=== PATIENT | male | born 1985 | race Caucasian/White ===

== ENCOUNTER 2016-11-24 13:53 | Emergency (ER) | payer SELFPAY ==
[2016-11-24 13:57] VITALS: BP 143/85; PULSE 87; RESP 20; TEMP 98; O2SAT 97
[2016-11-24] MEDS ORDERED: Oxycodone/Acetaminophen 5/325 mg Tab PO STA (14:01)
[2016-11-24] MEDS ORDERED: Oxycodone/Acetaminophen 5/325 mg Tab ONE (14:05)
--- NOTE | 2016-11-24 14:06 | ED PDOC ---
HPI: Dental Pain/Injury Time Seen by Provider: 11/24/16 13:57 Chief Complaint (Nursing): Dental Pain Chief Complaint (Provider): Left lower jaw History Per: Patient History/Exam Limitations: no limitations Onset/Duration Of Symptoms: Days Current Symptoms Are (Timing): Still Present Quality: "Pain" Additional Complaint(s): The patient is a 31yo male, no past medical history, presents to the ED for evaluation of pain to his left lower jaw. Patient reports pain has been present for the past day and is radiating to his ear and throat. Patient denies any injury or recent dental work. He also denies any associated fever, chills. Patient currently offers no other medical complaints. Past Medical History Reviewed: Historical Data, Nursing Documentation, Vital Signs Vital Signs: Last Vital Signs Temp 98 F 11/24/16 13:55 Pulse 87 11/24/16 13:55 Resp 20 11/24/16 13:55 BP 143/85 11/24/16 13:55 Pulse Ox 97 11/24/16 13:55 - Medical History PMH: No Chronic Diseases - Surgical History Surgical History: No Surg Hx - Family History Family History: States: Unknown Family Hx - Immunization History Hx Tetanus Toxoid Vaccination: No Hx Influenza Vaccination: No Hx Pneumococcal Vaccination: No - Allergies Allergies/Adverse Reactions: Allergies Allergy/AdvReac Type Severity Reaction Status Date / Time No Known Allergies Allergy Verified 11/24/16 13:55 Review of Systems ROS Statement: Except As Marked, All Systems Reviewed And Found Negative Constitutional: Negative for: Fever, Chills ENT: Positive for: Other (left lower jaw pain) Physical Exam - Reviewed Nursing Documentation Reviewed: Yes Vital Signs Reviewed: Yes - Physical Exam Appears: Positive for: Well, Non-toxic, No Acute Distress Head Exam: Positive for: ATRAUMATIC, NORMAL INSPECTION, NORMOCEPHALIC Skin: Positive for: Normal Color, Warm, DRY Eye Exam: Positive for: EOMI, Normal appearance, PERRL ENT: Positive for: Other (left lower jaw with missing teeth, swelling noted.) Neck: Positive for: Normal Respiratory: Negative for: Respiratory Distress Neurologic/Psych: Positive for: Alert, Oriented - ECG O2 Sat by Pulse Oximetry: 97 (RA) Pulse Ox Interpretation: Normal Medical Decision Making Medical Decision Making: Time: 1402 Impression: Dental abscess Plan: -- Percocet 1 tab PO -- Penicillin VK 500 mg PO Pt provided with info to dental clinics [facility] [place] RX database accessed, no RX filled in last year Scribe Attestation: Documented by Tiffany Germain acting as a scribe for [employer] [facility] Provider Attestation: All medical record entries made by the Scribe were at my direction and personally dictated by me. I have reviewed the chart and agree that the record accurately reflects my personal performance of the history, physical exam, medical decision making, and the department course for this patient. I have also personally directed, reviewed, and agree with the discharge instructions and disposition. Disposition - Clinical Impression Clinical Impression: Dental caries, Dental abscess - Patient ED Disposition Is Patient to be Admitted: No - Disposition Disposition: Routine/Home Disposition Time: 14:24 Condition: STABLE Forms: [employer] (Mongolian) - POA Present On Arrival: None
== END 2016-11-24 14:38 | disposition home or self-care (01) ==
LOC: H.ER 13:53
DX: K04.7 Periapical abscess without sinus (principal)

== ENCOUNTER 2017-01-31 17:33 | Emergency (ER) | payer OTHER ==
[2017-01-31 18:21] VITALS: BP 129/81; PULSE 73; RESP 18; TEMP 97.7; O2SAT 98
--- NOTE | 2017-01-31 18:43 | ED PDOC ---
HPI: Dental Pain/Injury Time Seen by Provider: 01/31/17 18:30 Chief Complaint (Nursing): Dental Pain Chief Complaint (Provider): Mouth pain History Per: Patient History/Exam Limitations: no limitations Onset/Duration Of Symptoms: Days Current Symptoms Are (Timing): Still Present Additional Complaint(s): Patient is a 32 y/o male with no significant past medical history presenting to the emergency department for an abscess in his left lower mouth ongoing for two days. No swelling noted. Denies seeing a dentist for the problem. Also denies other complaints. PCP: none provided. Past Medical History Reviewed: Historical Data, Nursing Documentation, Vital Signs Vital Signs: Last Vital Signs Temp 97.7 F 01/31/17 18:20 Pulse 73 01/31/17 18:20 Resp 18 01/31/17 18:20 BP 129/81 01/31/17 18:20 Pulse Ox 98 01/31/17 18:20 - Medical History PMH: No Chronic Diseases - Surgical History Surgical History: No Surg Hx - Family History Family History: States: Unknown Family Hx - Social History Current smoker - smoking cessation education provided: Yes Ex-Smoker (has not smoked in the last 12 months): No Alcohol: None Drugs: Denies - Immunization History Hx Tetanus Toxoid Vaccination: No Hx Influenza Vaccination: No Hx Pneumococcal Vaccination: No - Home Medications Home Medications: Ambulatory Orders Medication Instructions Recorded Penicillin VK [Pen-Vee K] 500 mg PO BID #14 tab 11/24/16 oxyCODONE/Acetaminophen [Percocet 1 ea PO Q6 PRN #5 tab 11/24/16 5/325 mg Tab] Clindamycin [Cleocin] 1 tab PO QID #28 cap 01/31/17 Naproxen 1 tab PO Q12 PRN #10 tab 01/31/17 - Allergies Allergies/Adverse Reactions: Allergies Allergy/AdvReac Type Severity Reaction Status Date / Time No Known Allergies Allergy Verified 11/24/16 13:55 Review of Systems ROS Statement: Except As Marked, All Systems Reviewed And Found Negative ENT: Positive for: Mouth Pain (abscess) Physical Exam - Reviewed Nursing Documentation Reviewed: Yes Vital Signs Reviewed: Yes - Physical Exam Appears: Positive for: Well, Non-toxic, No Acute Distress Head Exam: Positive for: ATRAUMATIC, NORMAL INSPECTION, NORMOCEPHALIC Skin: Positive for: Normal Color, Warm, Dry Eye Exam: Positive for: Normal appearance ENT: Positive for: Other (tenderness on palpation of left lower gums. no pus pocket noted.) Neck: Positive for: Normal Cardiovascular/Chest: Positive for: Regular Rate, Rhythm Respiratory: Negative for: Accessory Muscle Use, Respiratory Distress Extremity: Positive for: Normal ROM Neurologic/Psych: Positive for: Alert, Oriented (x3) - ECG O2 Sat by Pulse Oximetry: 98 (RA) Pulse Ox Interpretation: Normal Medical Decision Making Medical Decision Makin:30 Initial impression: mouth pain Patient was offered Motrin but declined. Antibiotics prescribed. 18:45 Upon provider reevaluation patient is medically stable, and requires no further treatment in the ED at this time. Patient will be discharged with Rx for Naproxen and Cleocin. Counseling was provided and all questions were answered regarding diagnosis. There is agreement to discharge plan. Return if symptoms persist or worsen. Clinical Impression: Toothache ~ Scribe Attestation: Documented by Oksana Blanchard, acting as a scribe for [facility]. Provider Scribe Attestation: All medical record entries made by the Scribe were at my direction and personally dictated by me. I have reviewed the chart and agree that the record accurately reflects my personal performance of the history, physical exam, medical decision making, and the department course for this patient. I have also personally directed, reviewed, and agree with the discharge instructions and disposition. Disposition - Clinical Impression Clinical Impression: Toothache - Patient ED Disposition Is Patient to be Admitted: No Counseled Patient/Family Regarding: Rx Given - Disposition Disposition: Routine/Home Disposition Time: 18:45 Condition: FAIR Prescriptions: Clindamycin [Cleocin] 1 tab PO QID #28 cap Naproxen 1 tab PO Q12 PRN #10 tab PRN Reason: Pain, Moderate (4-7) Instructions: Toothache (ED) Forms: [employer] (Spanish)
== END 2017-01-31 18:48 | disposition home or self-care (01) ==
LOC: H.ER 17:33
DX: K08.89 Other specified disorders of teeth and supporting structures (principal)

== ENCOUNTER 2017-05-10 10:59 | Emergency (ER) | payer MEDICAID, OTHER ==
[2017-05-10 11:04] VITALS: BP 145/90; PULSE 88; TEMP 97; O2SAT 98
[2017-05-10 11:05] VITALS: BMI 22.8
[2017-05-10 11:28] VITALS: RESP 19
--- NOTE | 2017-05-10 11:35 | ED PDOC ---
HPI: Back Time Seen by Provider: 05/10/17 11:35 Chief Complaint (Nursing): Back Pain Chief Complaint (Provider): low back pain History Per: Patient Additional Complaint(s): 32-year-old male with no past medical history presents to emergency department with lower back pain 2 weeks. Patient denies any trauma or injury. He denies history of similar symptoms. Patient states today he woke up with worsening pain prompting ED visit. No medications taken for pain relief since pain started 2 weeks ago. Patient denies radiation of pain and he denies any bowel or bladder dysfunction. PMD: none Past Medical History Reviewed: Historical Data, Nursing Documentation, Vital Signs Vital Signs: Last Vital Signs Temp 97 F L 05/10/17 11:25 Pulse 88 05/10/17 11:25 Resp 19 05/10/17 11:25 BP 145/90 05/10/17 11:25 Pulse Ox 98 05/10/17 11:25 - Medical History PMH: No Chronic Diseases - Surgical History Surgical History: No Surg Hx - Family History Family History: States: No Known Family Hx - Living Arrangements Living Arrangements: With Family - Social History Current smoker - smoking cessation education provided: Yes Alcohol: None Drugs: Cannabis - Home Medications Home Medications: Ambulatory Orders Medication Instructions Recorded Penicillin VK [Pen-Vee K] 500 mg PO BID #14 tab 11/24/16 oxyCODONE/Acetaminophen [Percocet 1 ea PO Q6 PRN #5 tab 11/24/16 5/325 mg Tab] Clindamycin [Cleocin] 1 tab PO QID #28 cap 01/31/17 Naproxen 1 tab PO Q12 PRN #10 tab 01/31/17 Cyclobenzaprine [Cyclobenzaprine 10 mg PO TID PRN #20 tab 05/10/17 HCl] Naproxen [Naprosyn] 500 mg PO BID #20 tab 05/10/17 - Allergies Allergies/Adverse Reactions: Allergies Allergy/AdvReac Type Severity Reaction Status Date / Time No Known Allergies Allergy Verified 11/24/16 13:55 Review of Systems ROS Statement: Except As Marked, All Systems Reviewed And Found Negative Constitutional: Negative for: Fever Respiratory: Negative for: Cough Gastrointestinal: Negative for: Nausea, Vomiting, Abdominal Pain, Diarrhea Genitourinary Male: Negative for: Dysuria Musculoskeletal: Positive for: Back Pain Physical Exam - Reviewed Nursing Documentation Reviewed: Yes Vital Signs Reviewed: Yes - Physical Exam Appears: Positive for: Well, Non-toxic, No Acute Distress Skin: Negative for: Rash Eye Exam: Positive for: Normal appearance Cardiovascular/Chest: Positive for: Regular Rate, Rhythm Respiratory: Positive for: Normal Breath Sounds Back: Positive for: Other (Moderate tenderness to palpation of the lower lumbar region, no step off, no palpable bony deformity, no CVA tenderness bilaterally) Neurologic/Psych: Positive for: Alert, Oriented - Laboratory Results Urine dip results: Negative for: Leukocyte Esterase, Blood, Nitrate, Ketones, Glucose, Bilirubin, Protein - ECG O2 Sat by Pulse Oximetry: 98 Pulse Ox Interpretation: Normal - Other Rad L/S Spine X-ray X-Ray: Interpreted by Me, Viewed By Me X-Ray Interpretation: no fx, no dis Medical Decision Making Medical Decision Makin-year-old male with lumbar pain Plan: U dip LS Spine x-ray PO tylenol and flexeril IM toradol Patient is aware of all diagnostic testing results, all questions answered. Patient reports slight improvement pain after meds given. Prescriptions provided for Naprosyn and Flexeril. Patient was referred to on-call orthopedist for follow-up. Disposition - Clinical Impression Clinical Impression: Back strain - Patient ED Disposition Is Patient to be Admitted: No Counseled Patient/Family Regarding: Studies Performed, Diagnosis, Need For Followup, Rx Given, Smoking Cessation - Disposition Referrals: Humberto Vazquez III, MD [Staff Provider] - Disposition: Routine/Home Disposition Time: 13:30 Condition: STABLE Additional Instructions: Take prescription meds as directed as needed for pain. Rest and avoid heavy lifting. Follow-up with primary doctor or orthopedist for any persistent symptoms. Prescriptions: Cyclobenzaprine [Cyclobenzaprine HCl] 10 mg PO TID PRN #20 tab PRN Reason: Muscle Spasm Naproxen [Naprosyn] 500 mg PO BID #20 tab Instructions: Back Pain (ED) Forms: [employer] (Hungarian)
--- NOTE | 2017-05-10 13:44 | RAD ---
PROCEDURE: Radiographs of the Lumbar Spine. HISTORY: lumbar pain COMPARISON: None. FINDINGS: BONES: Alignment appears satisfactory. No listhesis. No acute displaced fracture identified. DISC SPACES: Unremarkable. OTHER FINDINGS: None. IMPRESSION: No acute displaced fracture or subluxation identified.
== END 2017-05-10 13:45 | disposition home or self-care (01) ==
LOC: H.ER 10:59
DX: M54.5 Low back pain (principal)
CPT/HCPCS: 72100; 96372; 99283; J1885